=== PATIENT | female | born 1975 | race Caucasian/White ===

== ENCOUNTER 2016-12-19 09:46 | Outpatient (CLI) | payer OTHER ==
--- NOTE | 2016-12-19 12:42 | Mammography Report ---
BILATERAL DIGITAL SCREENING MAMMOGRAM with CAD: 12/19/16 09:46:00 CLINICAL: Routine screening. COMPARISON:12/17/15 FINDINGS: The breasts are heterogeneously dense, which may obscure small masses. No mass, architectural distortion or suspicious calcifications. IMPRESSION: No mammographic evidence of malignancy. BI-RADS CATEGORY: 1 - - Negative RECOMMENDATION: Routine mammographic screening in one year. COMMENT: Patient follow-up letters are generated by our [employer] application.
== END 2016-12-19 09:47 | disposition home or self-care (01) ==
LOC: MAMMO 09:46
PROVIDERS: ATTEND Obstetrics & Gynecology
DX: Z12.31 Encounter for screening mammogram for malignant neoplasm of breast (principal)
CPT/HCPCS: 77067; G0202

== ENCOUNTER 2017-06-27 06:09 | Observation (INO) | payer OTHER ==
[2017-06-21 11:25] LABS: Basophils # (Auto) 0.1 K/mm3 (0.0-0.1); Basophils % (Auto) 0.7 % (0.0-1.8); Eosinophils # (Auto) 0.1 K/mm3 (0.0-0.4); Eosinophils % (Auto) 0.6 % (0.0-4.3); Hematocrit 38.6 % (30.3-42.9); Hemoglobin 13.2 gm/dl (10.1-14.3); Lymphocytes % (Auto) 25.1 % (13.4-35.0); Mean Corpuscular HGB Conc 34 % (30-34); Mean Corpuscular Hemoglobin 31 pg (28-32); Mean Corpuscular Volume 89 fl (79-97); Monocytes # (Auto) 0.5 K/mm3 (0.0-0.8); Monocytes % (Auto) 6.2 % (0.0-7.3); Platelet Count 250 K/mm3 (140-440); Red Blood Count 4.33 M/mm3 (3.65-5.03); Red Cell Distribution Width 13.2 % (13.2-15.2)
[2017-06-21 11:37] LABS: BUN/Creatinine Ratio 24; Blood Urea Nitrogen 12 mg/dL (7-17); Calcium 8.4 mg/dL (8.4-10.2); Hemolysis Index 2
--- NOTE | 2017-06-21 11:41 | Anesthesia Consultation ---
Anesthesia Consult and Med Hx Date of service: 06/27/17 - Airway Anesthetic Teeth Evaluation: Good ROM Head & Neck: Adequate Mental/Hyoid Distance: Adequate Mallampati Class: Class II Intubation Access Assessment: Probably Good - Pulmonary Exam CTA: Yes - Cardiac Exam Cardiac Exam: RRR - Pre-Operative Health Status ASA Pre-Surgery Classification: ASA2 Proposed Anesthetic Plan: General Nerve Block: TAP - Pulmonary Hx Asthma: Yes (As a child, has not used inhaler for 3 years) - Cardiovascular System Hx Hypertension: Yes - Central Nervous System Hx Psychiatric Problems: No - Endocrine Hx Non-Insulin Dependent Diabetes: Yes - Other Systems Hx Cancer: No - Additional Comments Anesthesia Medical History Comments: Sinus tachy. cardiac clearance
--- NOTE | 2017-06-26 17:12 | History and Physical Report ---
History of Present Illness Date of examination: 06/21/17 History of present illness: This is a 42 year old female who presents for her preoperative visit for hysterectomy. She has experienced excessive and frequent irregular bleeding that started last year. She has declined hormonal/medical therapy due to her history of DM and HTN. She also declined conservative surgical therapy and desires to proceed with hysterectomy. Menstrual History: LMP (date): 05/25/2017 Date of Last Mammogram: 12/19/2016 Date of Last Pap Smear: 12/07/2016 Past History : 2 Term Births: 2 Living Children: 2 Para: 2 Prev : 1 Prev. attempt? success x1 # 1 Comments: Svdx1, c/sx1 LICENSED AND CERTIFIED MIDWIFE History Operations: x1 oral Abnormal PAP: negative Infection History HIV Risk Eval: low risk Personal hx. of genital herpes: no Hx of STD: HSV Active Medications (reviewed today): METRONIDAZOLE 500 MG ORAL TABLET (METRONIDAZOLE) 1 po bid IBUPROFEN 800 MG ORAL TABLET (IBUPROFEN) 1 po TID (PRN) HYDROCODONE-ACETAMINOPHEN 5-325 MG ORAL TABLET (HYDROCODONE-ACETAMINOPHEN) i po q 4 hrs for pain LOSARTAN POTASSIUM-HCTZ 100-25 MG ORAL TABLET (LOSARTAN POTASSIUM-HCTZ) METFORMIN HCL TABLET (METFORMIN HCL TABS) Current Allergies (reviewed today): No known allergies Past Medical History: Reviewed history from 12/07/2016 and no changes required: Hypertension Diabetes, Type 2 Past Surgical History: Reviewed history from 12/04/2015 and no changes required: x1 oral Family History Summary: Reviewed history Last on 11/14/2014 and no changes required:06/26/2017 Other family member - Has No Family History of Biliary Tract Cancer - Entered On : 01/28/2017 Other family member - Has No Family History of Breast Cancer - Entered On: 2016 Other family member - Has No Family History of Brain Cancer - Entered On: 2016 Other family member - Has No Family History of Colon Cancer - Entered On: 2016 Other family member - Has No Family History of DVT/PE on OCP - Entered On: 2016 Other family member - Has No Family History of Kidney/Urinary Tract Cancer - Entered On: 01/28/2017 Other family member - Has No Family History of Ovarvian Cancer - Entered On: 01/28/2017 Other family member - Has No Family History of Pancreatic Cancer - Entered On: 01/28/2017 Other family member - Has No Family History of Stomach Cancer - Entered On: 01/28 Other family member - Has No Family History of Small Bowel Cancer - Entered On: 01/28/2017 Other family member - Has No Family History of Uterine Cancer - Entered On: 01/28 Cousin (female) - Has Family History Breast Cancer - Entered On: 06/21/2017 General Comments - FH: No Family History of Breast Cancer No Family History of Colon Cancer No Family History of Ovarvian Cancer No Family History of DVT/PE on OCP Paternal 1st cousin brain cancer, age 40 Social History: Reviewed history from 12/07/2016 and no changes required: Patient is Smoking History: Patient has never smoked. Risk Factors: Mammogram History: Date of Last Mammogram: 12/19/2016 PAP Smear History: Date of Last PAP Smear: 12/07/2016 Previous Tobacco Use: Signed On - 12/04/2015 Smoked Tobacco Use: Never smoker Drug use: no HIV high-risk behavior: low risk Previous Alcohol Use: Signed On - 12/04/2015 Alcohol use: no Exercise: yes Times per week: 1 Seatbelt use: 100 % Mammogram History: Date of Last Mammogram: 12/19/2016 PAP Smear History: Date of Last PAP Smear: 12/07/2016 Review of Systems General Denies fever, chills, sweats, anorexia, fatigue, weakness, malaise, weight loss and sleep disorder. Complains of menorrhagia and abnormal vaginal bleeding. Denies vaginal discharge, incontinence, dysuria, hematuria, urinary frequency, amenorrhea, pelvic pain, genital sores, decreased libido, painful periods, painful sex, urinary urgency, hot flashes, vaginal dryness, vaginal itching and vaginal odor. CV Denies chest pains, palpitations, syncope, dyspnea on exertion, orthopnea, PND and peripheral edema. Resp Denies cough, dyspnea at rest, excessive sputum, hemoptysis, wheezing and pleurisy. GI Denies nausea, vomiting, diarrhea, constipation, change in bowel habits, abdominal pain, melena, hematochezia, jaundice, gas/bloating, indigestion/ heartburn, dysphagia and odynophagia. Endo Denies cold intolerance, heat intolerance, polydipsia, polyphagia, polyuria and unusual weight change. Breast Denies left breast lump, right breast lump, nipple discharge, bloody discharge from nipple, breast pain, abnormal mammogram and breast enlargement. MS Denies back pain, joint pain, joint swelling, muscle cramps, muscle weakness, stiffness, arthritis, sciatica, restless legs, leg pain at night and leg pain with exertion. Derm Denies rash, itching, dryness and suspicious lesions. Neuro Denies paralysis, paresthesias, headache, seizures, tremors, vertigo, transient blindness, frequent falls, frequent headaches and difficulty walking. Psych Denies depression, anxiety, irritability and mood swings. Eyes Denies blurring, diplopia, irritation, discharge, vision loss, eye pain and photophobia. ENT Denies earache, ear discharge, tinnitus, decreased hearing, nasal congestion, nosebleeds, sore throat and hoarseness. Allergy Denies urticaria, allergic rash, hay fever and recurrent infections. Heme Denies abnormal bruising, bleeding and enlarged lymph nodes. Laboratory Results [place]LIE Source: vagina WM: rare WBCs, Clue Cells absent, Yeast absent, Trichomonas absent Physical Exam Appearance: well developed, well nourished, no acute distress Other Exams Lungs: no rales, rhonchi, or wheezes Heart: S1, S2, no murmur, rub, or gallop Abdomen: soft, non-tender, no masses, Skin: no ulcers, xanthomas Extremities: normal alignment, no joint enlargement, crepitus, masses or tenderness; normal tone and strength Genitourinary Exam Vagina: normal appearance, no lesions. No evidence of cystocele or rectocele. Moderate blood inher vagina Cervix: normal appearance, no lesions, no discharge Uterus: normal position, midline, fixed Adnexa: no masses or tenderness Impression & Recommendations: Problem # 1: Excessive and frequent menstruation with irregular cycle (ICD- 626.6) (MTU18-L92.1) Consent reviewed and signed . Possible laparoscopy or laparotomy explained to patient. The risks and alternatives for this surgery were reviewed with the patient. She was informed of possible bleeding, infection, injury to bowel, bladder, ureters or other adjacent organs. She is aware she will not be able to get after her uterus has been removed. She desires ovarian conservation. She was informed she may require surgery later to have her ovaries removed for a benign or mailgnant conditions. The patient was instructed/informed the following: The normal length of hospital stay for this procedure. Nothing to eat or drink after midnight the evening prior to surgery. Clear liquids the day before surgery. Fleets enema the day prior to surgery. Pre-op instruction sheets given. Wound care instructions given. Infection precautions reviewed, patient to call for any signs or symptoms of infection. The usual discomforts associated with this procedure were detailed. Proper use of pain medicines was reviewed. Patient was given ample opportunity to have all her questions answered before signing informed consent. Medications Added to Medication List This Visit: 1) Ibuprofen 800 Mg Oral Tablet (Ibuprofen) .... 1 po tid (prn) 2) Hydrocodone-acetaminophen 5-325 Mg Oral Tablet (Hydrocodone-acetaminophen) .... I po q 4 hrs for pain Prescriptions: IBUPROFEN 800 MG ORAL TABLET (IBUPROFEN) 1 po TID (PRN) #30 x 0 Entered and Authorized by: Dinorah Davis MD Method used: Print then Give to Patient RxID: [id number] HYDROCODONE-ACETAMINOPHEN 5-325 MG ORAL TABLET (HYDROCODONE-ACETAMINOPHEN) i po q 4 hrs for pain #30 x 0 Entered and Authorized by: Dinorah Davis MD Method used: Print then Give to Patient RxID: [id number] Medications and Allergies Allergies Allergy/AdvReac Type Severity Reaction Status Date / Time No Known Allergies Allergy Unverified 06/20/17 16:55 Home Medications Medication Instructions Recorded Confirmed Last Taken Type Losartan/Hydrochlorothiazide 1 each PO DAILY 06/20/17 06/20/17 Unknown History [Losartan-Hctz 50-12.5 mg Tab] metFORMIN XR [Glucophage XR] 500 mg PO BID 06/20/17 06/20/17 Unknown History Active Meds: Active Medications Lactated Ringer's (Lactated Ringers) 1,000 mls @ 100 mls/hr IV DIRECT TUAN Cefazolin Sodium (Ancef/Sterile Water 2 Gm/20 Ml) 2 gm in 20 mls @ 80 mls/hr IV PREOP NR; Protocol Stop: 06/27/17 23:59 Midazolam HCl (Versed) 2 mg IV PREOP NR Stop: 06/27/17 23:59 Exam Vital Signs Temp Pulse Resp BP 98.3 F 100 H 18 126/86 06/21/17 10:55 06/21/17 10:55 06/21/17 10:55 06/21/17 10:55 Results - Labs 06/21/17 11:00 06/21/17 11:00 Assessment and Plan - Patient Problems (1) Excessive and frequent menstruation with irregular cycle Status: Acute (2) Diabetes Status: Chronic Qualifiers: Diabetes mellitus type: type 2 Diabetes mellitus complication status: without complication (3) Hypertension Status: Chronic Qualifiers: Hypertension type: essential hypertension Qualified Code(s): I10 - Essential (primary) hypertension
[~2017-06-27 06:09] MED LIST: ANCEF/STERILE WATER 2 GM/20 ML 2 GM/20 ML SYRINGE IV NR; LACTATED RINGERS 1,000 ML IV SCH; VERSED IV NR
[2017-06-27] MEDS ORDERED: NACL BACTERIOSTATIC INFILTRATI ONE (06:40)
[2017-06-27] MEDS ORDERED: DECADRON ONE ×2 (07:17→09:14)
[2017-06-27] MEDS ORDERED: CLONIDINE 1,000 MCG/10 ML VIAL EP ONE (07:17)
[2017-06-27] MEDS ORDERED: NEURONTIN ONE (07:18)
[2017-06-27] MEDS ORDERED: SUBLIMAZE ONE (07:19)
[2017-06-27] MEDS ORDERED: PEPCID IV ONE (07:19)
[2017-06-27] MEDS ORDERED: PEPCID IV NR (07:20)
[2017-06-27] MEDS ORDERED: NEURONTIN PO NR (07:20)
[2017-06-27] MEDS ORDERED: SUBLIMAZE IV ONE (07:20)
[2017-06-27] MEDS ORDERED: NEOSPORIN GU IR ONE ×2 (07:26→09:34)
[2017-06-27] MEDS ORDERED: THROMBIN (BOVINE) TP ONE ×2 (07:26→09:34)
[2017-06-27] MEDS ORDERED: CALCIUM CHLORIDE IV ONE ×2 (07:26→09:34)
[2017-06-27] MEDS ORDERED: ZEMURON IV ONE (07:58)
[2017-06-27] MEDS ORDERED: XYLOCAINE MPF 2% ONE (07:58)
[2017-06-27] MEDS ORDERED: DILAUDID ONE (07:59)
[2017-06-27] MEDS ORDERED: DIPRIVAN 10 MG/ML IV ONE (07:59)
[2017-06-27] MEDS ORDERED: ZOFRAN ONE (09:14)
[2017-06-27] MEDS ORDERED: LACTATED RINGERS 1,000 ML ONE (09:16)
[2017-06-27] MEDS ORDERED: NEO SYNEPHRINE/NS Syringe(OR USE) IV ONE (09:18)
[2017-06-27] MEDS ORDERED: WATER FOR IRRIG STERILE IR ONE (09:34)
[2017-06-27] MEDS ORDERED: NACL 0.9% IR ONE (09:34)
[2017-06-27] MEDS ORDERED: BLOXIVERZ ONE (09:42)
[2017-06-27] MEDS ORDERED: ROBINUL ONE (09:42)
--- NOTE | 2017-06-27 10:24 | Operative Report ---
Operative Report Operative Report: Date: 06/27/2017 Preoperative diagnosis: 1. Excessive and frequent irregular menstruation Postoperative diagnosis: 1. Excessive and frequent irregular menstruation 2. Uterine fibroid Procedure: 1. Robotic-assisted laparoscopic total hysterectomy with bilateral salpingectomy Surgeon: Dinorah Davis MD Insurance Agency Owner: Shira Iraheta Anesthesiologist: Jeaneth Esteban M.D. Anesthesia: General endotracheal anesthesia EBL: Approximately minimal mL Findings: Uterus was sounded to approximately 9 cm. Questionable small posterior intramural fibroid. Grossly normal tubes and ovaries and appendix. Procedure: Patient was taken to the OR and placed in the supine position. General anesthesia was induced and an oral gastric tube was placed. Her neck and head were placed on foam support. Foam eye protection with goggles were secured in place. Then foam face protection was placed and secured. Foam shoulder pads were then positioned on her shoulders for Trendelenburg positioning. She was then placed in dorsolithotomy position. Exam under anesthesia as above. The abdomen and vagina were then prepped and draped in the usual sterile fashion. Timeout was performed. A Sepulveda catheter was inserted into the bladder with drainage of clear yellow urine. The operative speculum was introduced into the vagina and the anterior lip of the cervix was grasped with single-toothed tenaculum. The uterus was sounded to 9 cm. The cervix was progressively dilated to allow the large V care uterine manipulator. The bulb of the manipulator was inflated and the speculum and tenaculum were removed. The cup of the manipulator was placed around the cervix and the blue occluder of the manipulator was properly positioned in the vagina. A laparotomy sponge that was saturated with a solution of polymyxin and saline was placed in the vagina to ensure pneumoperitoneum. Sterile gloves were placed and attention was turned to the abdomen. A 10 mm vertical supraumbilical incision was made approximately 10 cm superior to the elevated fundus of the uterus. A 12 mm trocar with the laparoscope and camera attached was introduced through this incision under direct visualization. The abdomen was insufflated. No obvious bowel, bladder, ureteral, or major vascular injury was noted. The patient was then placed in steep Trendelenburg position and the following trochars were placed under direct visualization: 8 mm robotic trochars were placed through incisions made in the bilateral midclavicular lower abdominal region approximately 10 cm lateral and approximately 2 cm below the midline incision, and a 5 mm trocar was placed through an incision made in the right lower lateral pelvis approximately 2 cm superior to the iliac crest. The 10 mm laparoscope was then replaced by a 5 mm laparoscope that was placed through the 5 millimeter lateral trocar. The 12 mm trocar was then removed in the Kei Goel fascial closure device was placed through the incision and a 0 Vicryl was placed through the fascia. Once the suture was secured the 12 mm trocar was reintroduced. Once the trochars were in the appropriate positions, the the da Carlin robot system was engaged. The EndoShears and bipolar device was placed through the 8 mm trochars and positioned then attention was turned to the console. The uterus was elevated and bilateral salpingectomy was performed. Each tube was removed through the 5 mm trocar and sent to pathology in separate containers. Then the utero-ovarian ligaments were clamped. cauterized and incised bilaterally using 30 W of energy. Then the round ligaments were clamped , cauterized and incised bilaterally. The anterior leaf of the broad ligament was elevated and careful blunt and sharp dissection the bladder flap was created and dissected away from the lower uterine segment and cervix. The posterior leaf of the broad ligament was dissected away from the uterine vessels. The cup of the uterine manipulator was palpated both anteriorly and posteriorly. Course of the ureters was visualized and was confirmed to be away from the operative field. The uterine vessels were then clamped and cauterized bilaterally. Blanching of the uterus was then noted. Attention was again turned to the anterior lower uterine segment and the bladder was confirmed to be away from the operative field. Then attention was turned again to the posterior where the cup of the manipulator was palpated and a colpotomy was performed down to the cup. The incision was extended in the lateral position the uterine vessels that were again clamped and cauterized and incised. Continuing along the cup of the manipulator in a circumferential manner the colpotomy was completed. The uterus and cervix were then removed through the vaginal incision. The pelvis was irrigated with warm normal saline. A moist laparotomy sponge was placed in the vagina to maintain pneumoperitoneum. The vagina cuff was reapproximated using V LOC 180 suture in a simple running stitch. The stitch was then removed first in run the opposite direction in a simple stitch to reinforce the vagina. Again the pelvis was copiously irrigated with polymixin in warm normal saline. The laparotomy sponge was removed from the vagina. No bowel, bladder, ureteral or major vascular injury was noted. Once hemostasis was noted, platelet rich plasma was applied to the operative field to ensure hemostasis. Then platelet poor plasma was applied to the operative field to decrease formation of adhesions. Again hemostasis was noted. Grossly normal appendix was noted. Then the instruments were removed, the robot was disengaged. The 12 mm trocar was removed and the fascia was ligated with the 0 Vicryl suture that was placed at the beginning of the procedure. The patient was taken out of Trendelenburg position, the abdomen was desufflated, the remaining trochars were removed. Incisions were reapproximated using 4-0 Vicryl in a subcuticular manner. Surgiseal was placed over the incisions. Small laceration of the right anterior labia minor was noted. Hemostasis was noted therefore no repair was required. The vagina was then inspected, no bleeding was noted and clear yellow urine was draining into the Sepulveda bag from the bladder at the end of the procedure. Patient was taken to recovery room in stable condition.
[2017-06-27] MEDS ORDERED: NACL 0.9% 1000 ML 1,000 ML ONE ×2 (10:25→10:50)
[2017-06-27] MEDS ORDERED: HumuLIN R IV PRN (10:27)
[2017-06-27] MEDS ORDERED: HumuLIN R ONE (10:28)
[2017-06-27] MEDS ORDERED: ePHEDrine SULFATE ONE (10:42)
[2017-06-27] MEDS: ePHEDrine SULFATE IV PRN ×2 (10:45→11:00)
--- NOTE | 2017-06-27 10:47 | Post Anesthesia Evaluation ---
- Post Anesthesia Evaluation Patient Participated: Yes Airway Patent: Yes Stable Respiratory Function: Yes Nausea/Vomiting: No Temp > 96.8F: Yes Pain Manageable: Yes Adequeate Hydration: Yes Anesthesia Complications: No
--- NOTE | 2017-06-27 10:47 | Anesthesia Day of Surgery ---
Anesthesia Day of Surgery - Day of Surgery Patient Examined: Yes Patient H&P Reviewed: Yes Patient is NPO: Yes
[2017-06-27] MEDS ORDERED: PROVENTIL IH ONE (11:32)
[2017-06-27] MEDS: PROVENTIL IH SCH ×3 (11:36→20:44)
[2017-06-27] MEDS ORDERED: NEURONTIN PO SCH (14:00)
--- NOTE | 2017-06-27 19:22 | Progress Note ---
Assessment and Plan - Patient Problems (1) Excessive and frequent menstruation with irregular cycle Current Visit: No Status: Resolved (2) Diabetes Current Visit: No Status: Chronic Qualifiers: Diabetes mellitus type: type 2 Diabetes mellitus complication status: without complication (3) Hypertension Current Visit: No Status: Chronic Qualifiers: Hypertension type: essential hypertension Qualified Code(s): I10 - Essential (primary) hypertension (4) Chronic tachycardia Current Visit: Yes Status: Chronic Plan to address problem: Followed by [facility] No evidence of bleeding, excellent UO, clear yellow Observe closely Subjective Date of service: 06/27/17 Patient Reports: Positive: no new complaints Narrative: Sitting up in bed with family present Objective Vital Signs - 12hr 06/27/17 06/27/17 06/27/17 07:25 07:35 07:40 Pulse Rate 102 H 119 H 109 H Respiratory 10 L 26 H 12 Rate Blood Pressure 122/84 143/77 122/86 O2 Sat by Pulse 100 100 100 Oximetry 06/27/17 06/27/17 06/27/17 07:45 07:50 07:55 Pulse Rate 102 H 94 H 107 H Respiratory 12 10 L 12 Rate Blood Pressure 111/74 119/71 120/79 O2 Sat by Pulse 99 99 100 Oximetry 06/27/17 06/27/17 06/27/17 08:00 09:57 10:00 Pulse Rate 105 H 75 76 Respiratory 15 16 14 Rate Blood Pressure 127/79 93/49 89/51 O2 Sat by Pulse 99 100 100 Oximetry 06/27/17 06/27/17 06/27/17 10:05 10:10 10:15 Pulse Rate 76 75 78 Respiratory 13 13 15 Rate Blood Pressure 91/56 90/52 94/54 O2 Sat by Pulse 100 100 100 Oximetry 06/27/17 06/27/17 06/27/17 10:30 10:45 11:00 Pulse Rate 86 93 H 93 H Respiratory 14 13 13 Rate Blood Pressure 78/36 90/49 118/75 O2 Sat by Pulse 96 100 100 Oximetry 06/27/17 06/27/17 06/27/17 11:15 11:30 11:45 Pulse Rate 116 H 114 H 110 H Respiratory 9 L 8 L 6 L Rate Blood Pressure 109/73 115/72 120/82 O2 Sat by Pulse 99 100 100 Oximetry 06/27/17 06/27/17 06/27/17 12:00 12:15 12:30 Pulse Rate 116 H 112 H 109 H Respiratory 10 L 9 L 8 L Rate Blood Pressure 122/74 122/72 113/66 O2 Sat by Pulse 96 97 97 Oximetry 06/27/17 06/27/17 06/27/17 12:45 13:00 13:15 Pulse Rate 118 H 118 H 120 H Respiratory 9 L 12 12 Rate Blood Pressure 109/70 107/70 93/52 O2 Sat by Pulse 96 97 96 Oximetry 06/27/17 06/27/17 06/27/17 13:30 13:45 14:00 Pulse Rate 115 H 115 H 110 H Respiratory 11 L 12 12 Rate Blood Pressure 101/56 105/66 93/59 O2 Sat by Pulse 94 97 97 Oximetry 06/27/17 06/27/17 06/27/17 14:15 14:30 14:45 Pulse Rate 108 H 111 H 116 H Respiratory 13 12 13 Rate Blood Pressure 101/65 105/62 102/56 O2 Sat by Pulse 96 96 96 Oximetry 06/27/17 06/27/17 06/27/17 15:00 15:15 15:45 Pulse Rate 120 H 121 H 114 H Respiratory 12 14 18 Rate Blood Pressure 95/53 107/71 99/61 O2 Sat by Pulse 97 98 99 Oximetry - General physical appearance well developed, well nourished, no distress - Respiratory normal expansion, normal respiratory effort, clear to auscultation - Abdomen soft, bowel sounds normal - Neurologic normal coordination - Psychiatric oriented to time, oriented to person, oriented to place, speech is normal - Labs 06/21/17 11:00 06/27/17 10:25 Diabetes panel 06/27/17 06/27/17 Range/Units 06:50 10:25 Potassium 3.6 (3.6-5.0) mmol/L Hemoglobin A1c 8.2 H (4-6) % Pituitary panel 06/27/17 Range/Units 10:25 Potassium 3.6 (3.6-5.0) mmol/L Adrenal panel 06/27/17 Range/Units 10:25 Potassium 3.6 (3.6-5.0) mmol/L
[2017-06-27] MEDS ORDERED: D50W (25GM) Syringe IV PRN (19:26)
[2017-06-27] MEDS ORDERED: TYLENOL PO PRN (19:30)
[2017-06-27] MEDS ORDERED: ZOFRAN IV PRN (19:36)
[2017-06-27] MEDS ORDERED: REGLAN IV PRN (19:36)
[2017-06-27] MEDS ORDERED: ZOFRAN PO PRN (19:36)
[2017-06-27] MEDS ORDERED: REGLAN PO PRN (19:36)
[2017-06-27] MEDS ORDERED: ANCEF/NS 1 GM/50 ML 1 GM/50 ML BAG IV SCH (20:00)
[2017-06-27] MEDS: NEURONTIN PO SCH (20:02)
[2017-06-27] MEDS: NACL 0.9% 1000 ML 1,000 ML IV SCH (20:02)
[2017-06-27] MEDS: HumuLIN R SUB-Q SCH (20:31)
[2017-06-27] MEDS: ceFAZolin 1 GM in NACL 0.9% 20 ML IV SCH (20:31)
[2017-06-27] MEDS: TYLENOL PO SCH (23:44)
[2017-06-27] MEDS: PEPCID IV SCH (23:49)
[2017-06-28] MEDS: HumuLIN R SUB-Q SCH ×2 (00:03→05:19)
[2017-06-28] MEDS: NACL 0.9% 1000 ML 1,000 ML IV SCH (03:33)
[2017-06-28] MEDS: ceFAZolin 1 GM in NACL 0.9% 20 ML IV SCH (03:33)
[2017-06-28] MEDS: NEURONTIN PO SCH ×2 (03:33→09:13)
[2017-06-28 06:04] LABS: Hematocrit 35.7 % (30.3-42.9); Hemoglobin 12.1 gm/dl (10.1-14.3)
[2017-06-28] MEDS ORDERED: PERCOCET 5/325 PO PRN (08:00)
[2017-06-28] MEDS: PROVENTIL IH SCH (08:32)
[2017-06-28] MEDS: TYLENOL PO SCH (09:12)
[2017-06-28] MEDS: PEPCID IV SCH (09:14)
[2017-06-28 12:05] VITALS: BP 112/73
--- NOTE | 2017-06-28 12:48 | Discharge Summary ---
Providers - Providers Date of Admission: 06/27/17 10:01 Date of discharge: 06/28/17 Attending physician: ROSE ADAMES Primary care physician: HUNTER BANG MD Hospitalization Condition: Good Procedures: RATH, Bilateral salpingectomy Hospital course: Unremarkable, she was placed on Telemetry d/t chronic tachycardia. Disposition: TO HOME OR SELFCARE - Discharge Diagnoses (1) Excessive and frequent menstruation with irregular cycle Status: Resolved (2) Diabetes Status: Chronic Qualifiers: Diabetes mellitus type: type 2 Diabetes mellitus complication status: without complication (3) Hypertension Status: Chronic Qualifiers: Hypertension type: essential hypertension Qualified Code(s): I10 - Essential (primary) hypertension (4) Chronic tachycardia Status: Chronic (5) History of robot-assisted laparoscopic hysterectomy Status: Acute (6) Status post bilateral salpingectomy Status: Acute Core Measure Documentation - Palliative Care Palliative Care/ Comfort Measures: Not Applicable - Core Measures Any of the following diagnoses?: none Exam - Constitutional Vitals: Temp Pulse Resp BP Pulse Ox 98.5 F 96 H 18 112/73 97 06/28/17 12:04 06/28/17 12:04 06/28/17 12:04 06/28/17 12:04 06/28/17 12:04 General appearance: Present: no acute distress, well-nourished - Respiratory Respiratory effort: normal Respiratory: negative: CTA - Cardiovascular Rhythm: regular - Extremities Extremities: no ischemia, No edema - Abdominal General gastrointestinal: Present: soft, non-tender, non-distended, normal bowel sounds Female genitourinary: Present: deferred - Psychiatric Psychiatric: appropriate mood/affect, intact judgment & insight - Additional findings Additional findings: Incision c/d/i Plan Activity: other (No sex, no driving, void frequently, use incentive spirometer every 1-2 hours while awake. Ambulate ~1minle on your property a day) Weight Bearing Status: Weight Bear as Tolerated Diet: low fat, low cholesterol, low salt, diabetic (Eat small meals frequently, avoid spicy foods), other (Drink ~70 oz water a day) Wound: open to air, keep clean and dry (May shower) Special Instructions: no heavy lifting (>25#) Follow up with: HUNTER BANG MD [Primary Care Provider] - 48 Hours ROSE ADAMES MD [Staff Physician] - 07/05/17 10:00 am ([place])
== END 2017-06-28 13:55 | disposition home or self-care (01) ==
LOC: OR 06:09 → OB 10:01 → 4A 15:12
PROVIDERS: ADMIT Obstetrics & Gynecology; ATTEND Obstetrics & Gynecology
DX: N92.1 Excessive and frequent menstruation with irregular cycle (principal); E11.9 Type 2 diabetes mellitus without complications; Z90.710 Acquired absence of both cervix and uterus; Z90.79 Acquired absence of other genital organ(s); I10 Essential (primary) hypertension
CPT/HCPCS: 36415; 58552; 64450; 80048; 81025; 82962; 83036; 84132; 85014; 85018; 85025; 86850; 86900; 86901; 88307; 94640; 94760; 96372; 96374; 96375; 96376; A4217; G0378; J0690; J0735; J1100; J1170; J2250; J2370; J2405; J2704; J2710; J3010; J7030; J7120; S2900; 88302; J1815

== ENCOUNTER 2017-12-20 09:23 | Outpatient (CLI) | payer OTHER ==
--- NOTE | 2017-12-22 09:47 | Mammography Report ---
Bilateral mammogram: Compared to 12/19/16. CAD study utilized. Findings: Predominance adipose tissue bilaterally. Circumscribed asymmetry outer posterior left breast appears more rounded compared to previous study. No microcalcification. Benign axillary nodes. Impression: Circumscribed asymmetry left breast. Recommend spot compression and if necessary sonographic examination. BI-RADS CATEGORY: 0 = Needs additional imaging evaluation ACR BI-RADS MAMMOGRAPHIC CODES: 0 = Needs additional imaging evaluation; 1 = Negative; 2 = Benign; 3 = Probably benign; 4 = Suspicious; 5 = Malignant; 6 = Known biopsy-proven malignancy COMMENT: 1. Dense breast tissue, i.e., adenosis, fibrocystic changes, etc., may obscure an underlying neoplasm. 2. Approximately 10% of cancers are not detected with mammography. 3. A negative mammography report should not delay biopsy if a clinically suspicious mass is present. COMMENT: Patient follow-up letters are generated in [employer].
== END 2017-12-20 09:24 | disposition home or self-care (01) ==
LOC: SPVWC 09:23
PROVIDERS: ATTEND Obstetrics & Gynecology
DX: Z12.31 Encounter for screening mammogram for malignant neoplasm of breast (principal); I10 Essential (primary) hypertension; E11.9 Type 2 diabetes mellitus without complications; J45.909 Unspecified asthma, uncomplicated
CPT/HCPCS: 77063; 77067

== ENCOUNTER 2018-12-21 09:54 | Outpatient (CLI) | payer OTHER ==
--- NOTE | 2018-12-24 13:22 | Mammography Report ---
DIGITAL SCREENING MAMMOGRAM WITH CAD, 12/21/2018 INDICATION: Routine screening mammography. TECHNIQUE: Digital bilateral 2D mammography was obtained in the craniocaudal and mediolateral obliq ue projections. This examination was interpreted with the benefit of Computer-Aided Detection analysi s. COMPARISON: 12/20/2017 FINDINGS: Breast Density: The breasts are heterogeneously dense, which may obscure small masses. There is no evidence of dominant mass, suspicious calcifications or architectural distortion in eithe r breast. IMPRESSION: No mammographic evidence of malignancy. Follow up recommendation: Routine yearly BI-RADS Category 1: Negative. A "normal" or negative report should not discourage follow up or biopsy of a clinically significant f inding. A written summary of these findings will be mailed to the patient. The patient will be entered into a mammography reporting system which will generate a reminder letter for the patient's next appointmen t at the appropriate interval. The [employer] recommends yearly mammograms starting at age 40 and continuing as l maicol as a woman is in good health. Breast MRI is recommended for women with an approximate 20-25% or greater lifetime risk of breast cancer, including women with a strong family history of breast or ova latosha cancer or who have been treated for Hodgkin's disease. Signer Name: Jama Cuellar MD Signed: 12/24/2018 1:17 PM Workstation Name: [id number]
== END 2018-12-21 09:55 | disposition home or self-care (01) ==
LOC: SPVWC 09:54
PROVIDERS: ATTEND Obstetrics & Gynecology
DX: Z12.31 Encounter for screening mammogram for malignant neoplasm of breast (principal); I10 Essential (primary) hypertension; E11.9 Type 2 diabetes mellitus without complications; J45.909 Unspecified asthma, uncomplicated
CPT/HCPCS: 77067

== ENCOUNTER 2020-01-14 10:41 | Outpatient (CLI) | payer OTHER ==
--- NOTE | 2020-01-15 08:22 | Mammography Report ---
BILATERAL DIGITAL SCREENING MAMMOGRAM WITH TOMOSYNTHESIS CAD HISTORY: 3D SCREENING MAMMO TECHNIQUE: Routine digital mammographic imaging performed. Tomosynthesis images were processed and r eviewed. This examination was interpreted with the benefit of Computer-aided Detection analysis. COMPARISON: 12/21/2018, 12/20/2017, 12/19/2016. FINDINGS: Breast Density: scattered fibroglandular appearance of the breast tissue. Digital CC and MLO views demonstrate no mammographic evidence of malignancy. IMPRESSION: No mammographic evidence of malignancy. If the clinical examination remains stable, recommend bilate ral mammogram in approximately one year. BIRADS 1: Negative. FURTHER INFORMATION: According to the [employer], yearly mammograms are recommend ed starting at age 40 and continuing as long as a woman is in good health. Clinical Breast Exams shou ld be part of a periodic health exam-about every 3 years for women in their 20s and 30s and every yea r for women 40 and over. Breast self exam is an option for women starting in their 20s. Any breast ch torie noted on a breast self exam should be reported promptly to the patient's healthcare provider. Br east MRI is recommended for women with an approximately 20-25% or greater lifetime risk of breast can cer, including women with a strong family history of breast or ovarian cancer and women who have been treated for Hodgkin's disease. A negative Mammography report should not discourage follow up or biopsy of a clinically significant f inding and/or abnormality. Dense breast tissue may obscure small neoplasms. The patient will be entered into a reminder system with a target due date for the next screening mamm ogram. Signer Name: Solitario Regalado MD Signed: 01/15/2020 8:21 AM Workstation Name: [id number]
== END 2020-01-14 10:42 | disposition home or self-care (01) ==
LOC: SPVWC 10:41
PROVIDERS: ATTEND Obstetrics & Gynecology
DX: Z12.31 Encounter for screening mammogram for malignant neoplasm of breast (principal)
CPT/HCPCS: 77063; 77067

== ENCOUNTER 2021-02-05 10:51 | Outpatient (CLI) | payer OTHER | END 2021-02-05 10:52 | disposition home or self-care (01) | LOC: SPVWC 10:51 | PROVIDERS: ATTEND Obstetrics & Gynecology | DX: Z12.31 Encounter for screening mammogram for malignant neoplasm of breast (principal) | CPT/HCPCS: 77063; 77067 ==